=== PATIENT | female | born 1980 | race Caucasian/White ===

== ENCOUNTER 2016-11-06 21:24 | Emergency (ER) | payer OTHER ==
[2016-11-06] MEDS ORDERED: diphenhydrAMINE 50 MG/ML 1 ML VIAL IVP STA (22:29)
[2016-11-06] MEDS ORDERED: SODIUM CHLORIDE 0.9% 1,000 ML IV STA (22:29)
[2016-11-06] MEDS ORDERED: KETOROLAC 30 MG/ML 1 ML VIAL IVP STA (22:29)
[2016-11-06] MEDS ORDERED: METOCLOPRAMIDE 5 MG/ML 2 ML VIAL IVP STA (22:29)
[2016-11-06] MEDS ORDERED: PENICILLIN VK 500MG STARTER 4 TAB BTL PO STA (22:45)
[2016-11-06 23:33] VITALS: BP 113/68; PULSE 74; RESP 18; TEMP 98.9
--- NOTE | 2016-11-06 23:35 | ED ---
Headache HPI - General Chief Complaint: Headache Stated Complaint: migraine? dental Time Seen by Provider: 11/06/16 22:22 Source: RN notes reviewed Mode of arrival: ambulatory Limitations: no limitations - History of Present Illness Initial Comments: Patient is a 36 year old female with chief compliant of right sided headache and right upper dental pain for 2 days. She states that she has a severe migraine, it seems to be worse with lights and loud noises. She reports that motrin and tylenol have not helped with the headache. Patient states she has had no fever, chills, or any other symptoms. She reports she has been busy and stressed and has not been able to see a dentist. - Related Data Previous Rx's Medication Instructions Recorded Acetaminophen-Codeine 300-30mg 1 tab PO Q4H PRN #15 tablet 11/06/16 [Tylenol #3] Penicillin V Potassium [Pen Vee K] 500 mg PO QID #40 tab 11/06/16 Allergies Allergy/AdvReac Type Severity Reaction Status Date / Time No Known Allergies Allergy Verified 11/06/16 21:28 Review of Systems ROS Statement: Those systems with pertinent positive or pertinent negative responses have been documented in the HPI. ROS Other: All systems not noted in ROS Statement are negative. Past Medical History Past Medical History: No Reported History History of Any Multi-Drug Resistant Organisms: None Reported Past Surgical History: No Surgical Hx Reported Past Psychological History: No Psychological Hx Reported Smoking Status: Current every day smoker Past Alcohol Use History: Occasional Past Drug Use History: None Reported General Exam - General Exam Comments Initial Comments: well appearing 36 year old female, no distress. Limitations: no limitations General appearance: alert, in no apparent distress Head exam: Present: atraumatic, normocephalic, normal inspection Eye exam: Present: normal appearance, PERRL, EOMI. Absent: scleral icterus, conjunctival injection, periorbital swelling ENT exam: Present: normal exam, mucous membranes moist. Absent: normal oropharynx (swelling and dental caries in upper right teeth. ) Neck exam: Present: normal inspection. Absent: tenderness, meningismus, lymphadenopathy Respiratory exam: Present: normal lung sounds bilaterally. Absent: respiratory distress, wheezes, rales, rhonchi, stridor Cardiovascular Exam: Present: regular rate, normal rhythm, normal heart sounds. Absent: systolic murmur, diastolic murmur, rubs, gallop, clicks GI/Abdominal exam: Present: soft, normal bowel sounds. Absent: distended, tenderness, guarding, rebound, rigid Extremities exam: Present: normal inspection, full ROM, normal capillary refill. Absent: tenderness, pedal edema, joint swelling, calf tenderness Back exam: Present: normal inspection Neurological exam: Present: alert, oriented X3, CN II-XII intact Psychiatric exam: Present: normal affect, normal mood Skin exam: Present: warm, dry, intact, normal color. Absent: rash Course Vital Signs 11/06/16 11/06/16 21:25 23:32 Temperature 99.8 F H 98.9 F Pulse Rate 87 74 Respiratory 20 18 Rate Blood Pressure 133/80 113/68 O2 Sat by Pulse 98 99 Oximetry Medical Decision Making - Medical Decision Making Patient is a 36 year old female with no distress, complaining of right upper dental pain and right sided migraine headache. PAtient given IV toradol, reglan , and benadryl. Patient has no neurological deficits, and she does have some right upper molar dental carries and gingival swelling. Patient reports headache has subsided, and will be given antibiotics for dental infeciton. REports she will follow up with dentist within the next week, patient agrees with treatment plan and will comply. Disposition Clinical Impression: Migraine, Pain, dental Disposition: HOME SELF-CARE Condition: Good Instructions: Acute Headache (ED), Dental Abscess (ED) Additional Instructions: Patient advised to rest, increase fluids. Patient pain medication and antibiotics as directed. Follow-up with primary care provider if symptoms continue persist. Patient also advised to follow up with dentist in regards to tooth removal. Return to the emergency department if any alarming signs or symptoms occur. Prescriptions: Acetaminophen-Codeine 300-30mg [Tylenol #3] 1 tab PO Q4H PRN #15 tablet PRN Reason: Pain Penicillin V Potassium [Pen Vee K] 500 mg PO QID #40 tab Referrals: Jaye Giang MD [STAFF PHYSICIAN] - 1-2 days Time of Disposition: 23:34
== END 2016-11-06 23:46 | disposition home or self-care (01) ==
LOC: EC 21:24
DX: G43.909 Migraine, unspecified, not intractable, without status migrainosus (principal); K08.89 Other specified disorders of teeth and supporting structures; F17.200 Nicotine dependence, unspecified, uncomplicated
CPT/HCPCS: 99283; 96374; 96375 ×2; 96361; J1200; J2765; J1885